=== PATIENT | female | born 1955 | race Caucasian/White ===

== ENCOUNTER 2017-10-14 21:17 | Emergency (ER) | payer MEDICARE ==
[~2017-10-14] VITALS: Ht 167.6 cm; Wt 72.6 kg
[~2017-10-14 21:17] MED LIST: ALBU90OI INH; ASPI81EC PO; ATOR20; ATOR20 PO; CLON.3TP; DIPH50 PO; DOXY100 PO; ESCI20 PO; ESTR2; FENO145 PO; FENOFIBRATE145 MG PO; FLUO10 PO; GABA300 PO; HYDACE5325 PO; HYDACE7.5 PO; HYDGUAL120 PO; IBUPROFEN 800 MG; LEVSOD100 PO; LEVSOD50 PO; LISI20 PO; LISI5 PO; METF500 PO; METF500C PO; Motion Sickness25 M1 PO; OMEP20ER PO; PRED20 PO; RANI150 PO; RXTRAM50 PO; SULTRIDS PO; TRAM50 PO; Toradol10 MG PO; VENL37.5ER PO; VENLAFAXINE H37.5 MG PO; VIIBRYD PO
== END 2017-10-14 21:57 | disposition home or self-care (01) ==
LOC: ER 21:17
DX: M26.602 Left temporomandibular joint disorder, unspecified (principal); Z79.899 Other long term (current) drug therapy; Z79.82 Long term (current) use of aspirin; F32.9 Major depressive disorder, single episode, unspecified; E11.9 Type 2 diabetes mellitus without complications; I10 Essential (primary) hypertension; F17.210 Nicotine dependence, cigarettes, uncomplicated
CPT/HCPCS: 99282

== ENCOUNTER 2018-08-20 11:45 | Emergency (ER) | payer MEDICARE ==
[~2018-08-20] VITALS: Ht 167.6 cm; Wt 81.7 kg
[2018-08-20] MEDS ORDERED: Augmentin 875-1 EACH PO (12:11)
== END 2018-08-20 12:37 | disposition home or self-care (01) ==
LOC: ER 11:45
DX: S61.451A Open bite of right hand, initial encounter (principal); W54.0XXA Bitten by dog, initial encounter; Z79.899 Other long term (current) drug therapy; Z79.82 Long term (current) use of aspirin; F32.9 Major depressive disorder, single episode, unspecified; E11.9 Type 2 diabetes mellitus without complications; I10 Essential (primary) hypertension; F17.210 Nicotine dependence, cigarettes, uncomplicated
CPT/HCPCS: 99283

== ENCOUNTER 2019-01-03 07:33 | Day surgery (SDC) | payer MEDICARE ==
[~2019-01-03] VITALS: Ht 165.1 cm; Wt 83.0 kg
--- NOTE | 2019-01-03 06:58 | NUR ---
01/03/19 0658 Gisel Schultz EYE BED, PILLOW UNDER KNEES, RAILS UP.
[~2019-01-03 07:33] MED LIST changes: +ALBU2.5V5 INH; -ATOR20; +Augmentin 875-1 EACH PO; +Bisoprolol Fumar5 MG PO; +CALCIUM 600 +1 EA11 PO; +MICROZIDE12.5 M1 PO; +Venlafaxine HC225 MG PO; +ZESTRIL40 MG PO
--- NOTE | 2019-01-03 08:37 | NUR ---
01/03/19 0837 Antonietta Jordan CALL LIGHT WITHIN REACH. DR. SHAWLY AWARE OF PT'S COUGHING, DR OK TO PROCEED WITH SURGERY.
== END 2019-01-03 09:34 | disposition home or self-care (01) ==
LOC: ORSCSDS 07:33
PROVIDERS: Ophthalmology
PROC: 08RK3JZ Replacement of Left Lens with Synthetic Substitute, Percutaneous Approach (ICD-10-PCS; principal; 2019-01-03 09:00)
DX: H25.12 Age-related nuclear cataract, left eye (principal); E11.9 Type 2 diabetes mellitus without complications; I10 Essential (primary) hypertension; J43.9 Emphysema, unspecified; E66.9 Obesity, unspecified; Z68.30 Body mass index [BMI] 30.0-30.9, adult; Z79.899 Other long term (current) drug therapy; Z79.82 Long term (current) use of aspirin
CPT/HCPCS: 82947; J2250; J3010; J3301; J7040; J7120; V2632

== ENCOUNTER 2019-04-27 08:24 | Day surgery (SDC) | payer MEDICARE ==
[~2019-04-27] VITALS: Ht 167.6 cm; Wt 84.4 kg
--- NOTE | 2019-04-27 09:31 | NUR ---
04/27/19 0931 Shilpa Gonzales PT. HAS A COUGH. PT. IS A SMOKER. PT. DENIES SOB. PT. DID USE HER INHALERS YESTERDAY.
== END 2019-04-27 10:28 | disposition home or self-care (01) ==
LOC: ORSCSDS 08:24
PROVIDERS: Surgery
PROC: 0DBP8ZX Excision of Rectum, Via Natural or Artificial Opening Endoscopic, Diagnostic (ICD-10-PCS; principal; 2019-04-27 09:15)
PROC: 0DBN8ZX Excision of Sigmoid Colon, Via Natural or Artificial Opening Endoscopic, Diagnostic (ICD-10-PCS; principal; 2019-04-27 09:15)
DX: Z12.11 Encounter for screening for malignant neoplasm of colon (principal); D12.5 Benign neoplasm of sigmoid colon; K62.1 Rectal polyp; K57.30 Diverticulosis of large intestine without perforation or abscess without bleeding; Z86.010 Personal history of colon polyps; E78.5 Hyperlipidemia, unspecified; E03.9 Hypothyroidism, unspecified; I10 Essential (primary) hypertension; J44.9 Chronic obstructive pulmonary disease, unspecified; R73.03 Prediabetes; F32.9 Major depressive disorder, single episode, unspecified; F43.10 Post-traumatic stress disorder, unspecified; Z79.82 Long term (current) use of aspirin; Z79.899 Other long term (current) drug therapy; F17.210 Nicotine dependence, cigarettes, uncomplicated
CPT/HCPCS: 82947; 88305; J2250; J2704; J7120

== ENCOUNTER 2021-03-18 09:32 | Emergency (ER) | payer MEDICARE ==
[~2021-03-18] VITALS: Ht 167.6 cm; Wt 81.2 kg
[2021-03-18 10:18] LABS: BASOPHILS ABSOLUTE AUTO 0.03 K/mm3 (0.00-0.23); BASOPHILS PERCENT AUTO 0 % (0-2); EOSINOPHILS ABSOLUTE AUTO 0.25 K/mm3 (0.00-0.68); EOSINOPHILS PERCENT AUTO 3 % (0-6); Hematocrit 39.6 % (33.0-51.0); Hemoglobin 12.5 g/dL (11.5-16.0); IMMATURE GRAN ABSOLUTE AUTO 0.02 K/mm3 (0.00-0.10); IMMATURE GRAN PERCENT AUTO 0 % (0-1); LYMPHOCYTES ABSOLUTE AUTO 2.84 K/mm3 (0.84-5.20); LYMPHOCYTES PERCENT AUTO 31 % (21-46); MONOCYTES ABSOLUTE AUTO 0.68 K/mm3 (0.16-1.47); MONOCYTES PERCENT AUTO 7 % (4-13); Mean Corpuscular HGB 29.4 pg (26.0-34.0); Mean Corpuscular HGB Conc 31.6 g/dL (31.5-36.5); Mean Corpuscular Volume 93 fL (80-100); Mean Platelet Volume 11.4 fL (9.1-12.4); NEUTROPHILS ABSOLUTE AUTO 5.48 K/mm3 (1.96-9.15); NEUTROPHILS PERCENT AUTO 59 % (41-73); Platelet Count 233 K/mm3 (150-400); RDW Coefficient Variation 13.6 % (11.7-14.2); Red Blood Cell Count 4.25 M/mm3 (3.80-5.20)
[2021-03-18 10:47] LABS: Alanine Aminotransfer (ALT/SGP 37 U/L (12-78); Albumin, Blood 3.6 g/dL (3.4-5.0); Albumin/Globulin Ratio 0.9 (0.8-1.8); Alk Phos 127 U/L (50-136); Anion Gap 9 mmol/L (6-16); Aspartate Aminotrans (AST/SGOT 25 U/L (12-37); Bilirubin, Total 0.5 mg/dL (0.1-1.0); Blood Urea Nitrogen 17 mg/dL (8-24); Bun/Creatinine Ratio 25.8 (12.0-20.0); CO2, Blood 28 mmol/L (21-32); Calcium, Blood 9.2 mg/dL (8.5-10.1); Chloride, Blood 105 mmol/L (98-108); Creatinine, Blood 0.66 mg/dL (0.40-1.00); Glomerular Filtration Rate >60 (60-); Glucose, Blood 117 mg/dL (70-99); Potassium, Blood 4.2 mmol/L (3.5-5.5); Sodium, Blood 142 mmol/L (136-145); Total Protein, Blood 7.6 g/dL (6.4-8.2)
[2021-03-18 12:23] LABS: Source, Urine Clean Catch
[2021-03-18 12:30] LABS: Appearance, Urine Clear (Clear); Bilirubin, Urine Neg (Neg); Blood, Urine Neg (Neg); Color, Urine Yellow (P-Yellow); Glucose Qualitative, Urine Neg (Neg); Ketones, Urine Neg (Neg); Leukocyte Esterase, Urine Neg (Neg); Nitrite, Urine Neg (Neg); Protein, Urine 1+ (Neg); Specific Gravity, Urine 1.005 (1.003-1.022); Urobilinogen, Urine NORM (Normal); pH, Urine 6.5 (5.0-8.0)
== END 2021-03-18 13:24 | disposition home or self-care (01) ==
LOC: ER 09:32
PROVIDERS: Emergency Medicine
DX: K62.5 Hemorrhage of anus and rectum (principal); K62.89 Other specified diseases of anus and rectum; E11.9 Type 2 diabetes mellitus without complications; I10 Essential (primary) hypertension; J43.9 Emphysema, unspecified; F17.210 Nicotine dependence, cigarettes, uncomplicated; Z79.899 Other long term (current) drug therapy; Z79.82 Long term (current) use of aspirin
CPT/HCPCS: 36415; 74177; 80053; 83690; 85025; 99284-25; Q9967

== ENCOUNTER 2021-10-22 12:23 | Day surgery (SDC) | payer MEDICARE ==
[~2021-10-22 12:23] MED LIST changes: +ARNUITY ELLIP100 MCG IH; +VENL75ER PO; -Venlafaxine HC225 MG PO
== END 2021-10-22 14:00 | disposition home or self-care (01) ==
LOC: ORSCSDS 12:23
DX: Z86.010 Personal history of colon polyps (principal); K62.5 Hemorrhage of anus and rectum; Z53.9 Procedure and treatment not carried out, unspecified reason
CPT/HCPCS: J2704

== ENCOUNTER 2022-06-29 09:26 | Day surgery (SDC) | payer MEDICARE ==
[~2022-06-29] VITALS: Ht 167.6 cm; Wt 84.3 kg
[2022-06-29] MEDS ORDERED: BREZTRI AEROS10.7 GM (09:50)
[2022-06-29] MEDS ORDERED: IPRAT-ALBUT 0.5-3 ML (09:51)
== END 2022-06-29 10:57 | disposition home or self-care (01) ==
LOC: ORSCSDS 09:26
PROVIDERS: Surgery
PROC: 0DBN8ZX Excision of Sigmoid Colon, Via Natural or Artificial Opening Endoscopic, Diagnostic (ICD-10-PCS; principal; 2022-06-29 10:30)
DX: K62.5 Hemorrhage of anus and rectum (principal); Z86.010 Personal history of colon polyps; K63.5 Polyp of colon; J44.9 Chronic obstructive pulmonary disease, unspecified; F43.10 Post-traumatic stress disorder, unspecified; K21.9 Gastro-esophageal reflux disease without esophagitis; E78.5 Hyperlipidemia, unspecified; E03.9 Hypothyroidism, unspecified; F17.210 Nicotine dependence, cigarettes, uncomplicated; Z79.82 Long term (current) use of aspirin; Z79.899 Other long term (current) drug therapy
CPT/HCPCS: 82947; 88305; J2704; J7120

== ENCOUNTER → 2024-04-30 | Outpatient (CLI) | payer MEDICARE ==
[~2024-04-30] MED LIST changes: +ASPI81CH PO; -ASPI81EC PO; +BREZTRI AEROS10.7 GM INH; +CATAPRES0.1 MG PO; +EUTHYROX50 MCG PO; +FERSU300 PO; +IPRAT-ALBUT 0.5-3 ML; -LEVSOD50 PO; +PRED5 PO; +Ventolin5 MG/1 ML INH; -ZESTRIL40 MG PO
== END ==
LOC: LAB 18:56 → LAB SHORT 18:56
DX: N39.0 Urinary tract infection, site not specified (principal)
CPT/HCPCS: 87077; 87086; 87186

== ENCOUNTER 2024-11-23 17:17 | Emergency (ER) | payer MEDICARE ==
[~2024-11-23] VITALS: Ht 167.6 cm; Wt 68.0 kg
[2024-11-23 18:04] VITALS: BP 122/79
[2024-11-23] MEDS ORDERED: RX Prepack 6 Tabs Oxycodone 5mg UD ONE (20:00)
[2024-11-23] MEDS ORDERED: Percocet 5-3251 EACH PO (20:05)
== END 2024-11-23 20:28 | disposition home or self-care (01) ==
LOC: ER 17:17
DX: S22.080A Wedge compression fracture of T11-T12 vertebra, initial encounter for closed fracture (principal); I10 Essential (primary) hypertension; E11.9 Type 2 diabetes mellitus without complications; F17.210 Nicotine dependence, cigarettes, uncomplicated; Z79.82 Long term (current) use of aspirin; Z79.899 Other long term (current) drug therapy; W10.9XXA Fall (on) (from) unspecified stairs and steps, initial encounter
CPT/HCPCS: 72100; A9270